=== PATIENT | female | born 1935 | race Caucasian/White ===

== ENCOUNTER 2016-07-03 06:50 | Inpatient (IN) | payer MEDICARE, BC ==
--- NOTE | 2016-06-05 08:06 | HP ---
CC: Dr. Carvajal; Dr. Barron; Preadmission Testing Unit at the hospital HISTORY AND PHYSICAL EXAM: DATE OF ADMISSION: 07/03/16 CHIEF COMPLAINT: Pain in her right knee that is increasing. HISTORY OF PRESENT ILLNESS: This 80-year-old white female has been diagnosed with osteoarthritis of the right knee, bone on bone. Dr. Rosanne Barron has scheduled the patient for right total knee repl acement at [facility] on 07/03/16. PAST MEDICAL HISTORY: The patient is under the care of Dr. Jr Carvajal and Dr. Alberto. She has a history of hypothyroidism, chronic myelogenic leukemia since 1999. She is on Gleevec and has been in remission. 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 PAST SURGICAL HISTORY: Includes: 1. T and A in childhood. 2. Left breast lumpectomy in 1995. 3. Right cataract extraction, 2005. 4. Left cataract extraction, November 2015. 5. 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 CURRENT MEDICATIONS: 1. Synthroid 75 mcg daily. 2. Gleevec 100 mg 4 times daily. 3. Bumex 1 mg with potassium 10 mEq 2 times per week. 4. Occasionally, she will use ibuprofen or Aleve. ALLERGIES: No known drug allergies. FAMILY HISTORY: Father had prostate CA. Maternal grandmother, colon CA. Paternal aunt, breast CA. Maternal aunt, ovarian cancer. SOCIAL HISTORY: The patient is . Lives with her who is a retired surgeon. 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 Alcohol is limited to 2 glasses of wine per week. She smoked tobacco for about 10 years, quit in 1966. REVIEW OF SYSTEMS: She does wear glasses. Has some intermittent plugging of her right ear. Arthri tis symptoms with discomfort in her hands and fingers. She sees Dr. Goldman, water pump assembler, ever y 6 months for skin evaluation. Otherwise, review of systems is negative to detailed questioning. She specifically denies any dyspnea, cough, chest pain, palpitations, or edema symptoms at the prese nt time. PHYSICAL EXAMINATION GENERAL: A 80-year-old white female who is alert, pleasant, and cooperative, looks younger than her stated age. VITAL SIGNS: Height approximately 5 feet 7 inches, weight stable at 144, blood pressure 142/68, pul se 84. HEENT: Eyes: Pupils round and react to light. Ears: Normal. Mouth: Tongue in midline. Teeth i n good repair. Pharynx is clear. NECK: Supple. Good range of motion. No adenopathy. Thyroid benign. BACK: Normal curvature. No tenderness noted of the spine or CVA areas. SKIN: Every [address] Goldman. LUNGS: Clear anteriorly and posteriorly. HEART: Rhythm is regular. No murmurs. Apical pulse 84 beats per minute. EKG shows normal sinus r hythm, LAD. No change compared to EKG done 11/21/15. ABDOMEN: Flat. Active bowel sounds. Abdomen is soft, nontender. No obvious masses or organomegal y. BREAST, PELVIC, RECTAL: Exams all up-to-date. The patient sees Dr. Amaro every year. IMPRESSION: The patient is likely stable and cleared for right total knee replacement on 07/03/[address] Rosanne Barron. RODGER BAR, MODEL MAKER [id number]/[facility] #: [id number]
--- NOTE | 2016-06-25 20:25 | HP ---
HISTORY AND PHYSICAL: DATE OF SURGERY: 07/03/16 PROCEDURE: Right total knee arthroplasty. CHIEF COMPLAINT: Right knee pain. HISTORY OF PRESENT ILLNESS: Ms. Anderson is a 80-year-old female with complaints of right knee pain secondary to advanced osteoarthritis. She has failed conservative management and has elected to proceed with a right total knee arthroplasty, which is scheduled for 07/03/[address] Barron. PAST MEDICAL HISTORY: Hypothyroidism, breast cancer, CML. PAST SURGICAL HISTORY: Tonsillectomy and lumpectomy. CURRENT MEDICATIONS: 1. Levothyroxine 75 mcg. 2. Gleevec 400 mg. 3. Ibuprofen. 4. Multivitamin. 5. Bumetanide 0.5 mg. 6. KCL 10 mEq. 7. Naproxen 250. 8. Systane lubricant eye drops. 9. Afrin nasal spray. 10. Diphenhydramine. ALLERGIES: No known drug allergies. FAMILY HISTORY: Colon cancer, stroke, and congestive heart failure. SOCIAL HISTORY: She is a 80-year-old female, she lives with her . She does not smoke or use drugs. She uses occasional alcohol. REVIEW OF SYSTEMS: A complete 14-point review of systems was reviewed with the patient and was positive for hypothyroidism. PHYSICAL EXAMINATION GENERAL: She is well developed, well nourished. She is in no acute distress. VITAL SIGNS: She stands 5 feet 7 inches tall and weighs 140 pounds. Blood pressure 118/80, her heart rate is 96. HEENT: Normocephalic, atraumatic. NECK: Supple. No palpable lymph nodes. PULMONARY: The lungs are clear to auscultation bilaterally. CARDIO: Regular rate and rhythm. ABDOMEN: Soft, nontender, nondistended. MUSCULOSKELETAL: Right lower extremity, the skin is intact. She has moderate joint effusion, tenderness over the medial and lateral joint line. Her lower extremity muscle group strengths are intact at 5/5. She has intact sensation. 2+ dorsalis pedis pulses. She walks with a slightly antalgic type gait, favoring her right leg. ASSESSMENT AND PLAN: Ms. Anderson is a 80-year-old female with complaints of right knee pain secondary to advanced osteoarthritis. She has failed conservative management and elected to proceed with a right total knee arthroplasty, which is scheduled for 07/03/[address] Barron discussed the risks and the benefits of the surgery at today's visit and all of her questions were answered. Oxycodone 5 mg, Coumadin, and Colace were sent to her pharmacy today for postoperative pain control and DVT prophylaxis. She will see Dr. Barron back 10 to 14 days after the surgery. LIAM PILLAI [id number]/[facility] #: [id number] ARNIE
[~2016-07-03 06:50] MED LIST: Buffered Lidocaine 1% SYRIN* 3 ML/SYR SYRINGE INTRADERM ONE; Dexamethasone IV* 4 MG/ML 1 ML (4 MG) IV SLOW PU ONE; Dexmedetomidine* 200 MCG/2 ML 2 ML VIAL ONE; Famotidine IV* 10 MG/ML 2 ML (20 mg) IV ONE
[2016-07-03] MEDS ORDERED: Dexamethasone IV* 4 MG/ML 1 ML (4 MG) ONE (06:52)
[2016-07-03] MEDS ORDERED: Famotidine IV* 10 MG/ML 2 ML (20 mg) ONE (06:52)
[2016-07-03] MEDS ORDERED: ceFAZolin 2 GM PREMIX(*) 2 GM/50 ML BAG IVPB ONE (06:52)
[2016-07-03] MEDS ORDERED: HYDROmorphone* 1 MG/ML 1 ML SYR ONE ×3 (06:57→09:28)
[2016-07-03] MEDS ORDERED: Midazolam* 1 MG/ML 2 ML VIAL (2 MG) ONE (06:58)
[2016-07-03] MEDS ORDERED: Morphine PF AMP (0.5MG/ML)* 5 MG/10 ML AMP ONE (06:58)
[2016-07-03] MEDS ORDERED: fentaNYL* 50 MCG/ML 2 ML VIAL (100 MCG VIAL) ONE ×2 (06:58→07:35)
[2016-07-03] MEDS ORDERED: Propofol* 10 MG/ML 20 ML BTL IV PUSH ONE (07:00)
[2016-07-03] MEDS ORDERED: DiMENhydriNATE IV* 50 MG/ML VIAL IV PUSH PRN ×2 (07:15→12:01)
[2016-07-03] MEDS ORDERED: fentaNYL* 50 MCG/ML 2 ML VIAL (100 MCG VIAL) IV PRN (07:15)
[2016-07-03] MEDS ORDERED: PROCHLORPERAZINE INJ 5 MG/ML 2 ML VIAL IV PRN ×2 (07:15→12:01)
[2016-07-03] MEDS ORDERED: Ondansetron INJ* 2 MG/ML VIAL IV PRN ×3 (07:15→12:01)
[2016-07-03] MEDS ORDERED: Meperidine SYRINGE* 50 MG/ML ONE (09:28)
[2016-07-03] MEDS ORDERED: VASOPRESSIN 20 UNITS/ML 1 ML VIAL ONE (10:30)
[2016-07-03] MEDS ORDERED: Acetaminophen TAB* 325 MG PO PRN (11:07)
[2016-07-03] MEDS ORDERED: Ondansetron TAB* 4 MG PO PRN (11:07)
[2016-07-03] MEDS ORDERED: oxyCODONE TAB* 5 MG TAB PO PRN (11:07)
[2016-07-03] MEDS ORDERED: diPHENhydraMINE IV* 50 MG/ML 1 ml VIAL (BENADRYL) IV PRN ×2 (11:07→12:01)
[2016-07-03] MEDS ORDERED: Magnesium Hydroxide LIQ* 30 ML UDC PO PRN (11:07)
[2016-07-03] MEDS ORDERED: LACTULOSE* 30 ML UDC PO PRN (11:07)
[2016-07-03] MEDS ORDERED: Bisacodyl SUPP* 10 MG SUPP PR PRN (11:07)
[2016-07-03] MEDS ORDERED: Morphine INJ* 2 MG/ML 1 ML SYRINGE IV PRN (11:07)
[2016-07-03] MEDS ORDERED: Polyethylene Glycol 3350* 17 GM PACKET PO PRN (11:07)
[2016-07-03] MEDS ORDERED: oxyCODONE/Acetamin 5/325 MG* TAB PO PRN ×3 (11:07→12:01)
[2016-07-03] MEDS ORDERED: BUMETANIDE 0.5 MG PO SCH (11:15)
[2016-07-03] MEDS ORDERED: Potassium Chlor TAB* 10 MEQ TAB.ER PO SCH (12:00)
[2016-07-03] MEDS ORDERED: Naloxone* 0.4 MG/ML 1 ML VIAL IV PRN (12:01)
[2016-07-03] MEDS ORDERED: Nalbuphine* 20 MG/ML 1 ML VIAL IV PRN (12:01)
--- NOTE | 2016-07-03 12:29 | RAD ---
HISTORY: Status post right arthroplasty COMPARISONS: June 22, 2016 VIEWS: 2, Frontal and lateral views of the right knee FINDINGS: BONE DENSITY: Normal. BONES: The patient is status post right knee arthroplasty. There is no hardware failure or osteolysis. JOINTS: The patient is status post right knee arthroplasty ALIGNMENT: There is no dislocation. SOFT TISSUES: There is post surgical change to the soft tissue OTHER FINDINGS: None. IMPRESSION: STATUS POST RIGHT KNEE ARTHROPLASTY
[2016-07-03] MEDS: ceFAZolin 1 GM in Dextrose (*) 1 GM/50 ML BAG IVPB SCH ×2 (14:08→19:44)
[2016-07-03] MEDS ORDERED: Warfarin TAB(*) 6 MG PO ONE (17:00)
[2016-07-03] MEDS: IMATINIB 400 MG PO SCH (18:29)
--- NOTE | 2016-07-03 20:35 | CONS ---
CONSULTATION REPORT: DATE OF CONSULT: 07/03/16 PRIMARY CARE PROVIDER: Dr. Carvajal. ATTENDING PHYSICIAN WHILE IN THE HOSPITAL: Inocencia Montes DO (report dictated by Franko Lema NP). REQUESTING PHYSICIAN FOR CONSULTATION: Dr. Barron. REASON FOR CONSULTATION: Evaluation and management of comorbid medical condition. HISTORY OF PRESENT ILLNESS: I refer you to Dr. Barron's H and P for further details. In short, Ms. Anderson is a 80-year-old female patient who has a history of hypothyroidism, breast cancer, and a history of CML along with melanoma. She comes in to the orthopedic services today for an elective right total knee replacement. She has been complaining of right knee pain for sometime secondary to advanced osteoarthritis. She failed conservative management and elected to proceed with a right total knee with Dr. Barron. She underwent the procedure today and we were asked to evaluate in consult. The patient was evaluated in the postoperative setting down in the short stay unit. The patient states that she does feel tired. She denies having any chest pain. Denies having any nausea. Denies any vomiting. She denies having any abdominal pain. Denies having any chest pain or shortness of breath. She states that she is not having any pain really. She says she does feel some pain along the incision line, but says that her sensation is intact to her lower extremities and says that her pain is well controlled, but because of her medical problems, hospitalist service was asked to evaluate in consult. PAST MEDICAL HISTORY: Significant for: 1. Hypothyroidism. 2. CML. 3. Breast cancer. 4. Osteoarthritis. SURGICAL HISTORY: 1. She has had a tonsillectomy and adenoidectomy. 2. Left breast lumpectomy. 3. Cataract extractions. 4. Melanoma excision. HOME MEDICATIONS: According to the list that she provided preoperatively include: 1. Potassium 10 mEq p.o., take as directed. 2. Multivitamin 1 tablet daily. 3. Synthroid 75 mcg daily. 4. Gleevec 400 mg p.o. daily at bedtime. 5. Ibuprofen 400 mg p.o. b.i.d. as needed. 6. Bumex 0.5 mg p.o. as directed. 7. Benadryl 25 mg, take as directed. 8. Afrin 1 spray both nares as needed. 9. Naproxen 220 mg p.o. daily as needed. ALLERGIES TO MEDICATIONS: Include no known drug allergies. FAMILY HISTORY: Her mother from suicide. Father had a history of prostate cancer. SOCIAL HISTORY: She is a former smoker. She rarely drinks alcohol. Surrogate decision maker is her . REVIEW OF SYSTEMS: There is no documented fever. She denied having any significant weight change. There was no double vision. No ear discharge. No rhinorrhea. No sore throat. No thyroid enlargement. Denies having any chest pain. There is no orthopnea. No nocturnal dyspnea. No abdominal pain. No nausea. No vomiting. No dysuria. No frequency. No seizure. No loss of consciousness. No pruritus and no skin ulcerations. Review of 14 systems completed, all others negative. PHYSICAL EXAM: Vital Signs: Blood pressure 91/50 with a pulse of 73, respirations 18, O2 sat 100%, and temperature 97.2. General: At this time, Ms. Anderson is a 80- year-old female patient. She appears to be well nourished, well developed. She does not appear to be in any acute distress. She is sitting in the postoperative bed. HEENT: Head is atraumatic, normocephalic. Eyes: EOMs are intact. Sclerae anicteric and not pale. Throat: Oral mucosa appears to be moist. No oropharyngeal erythema. Neck was supple. Heart: Sounds S1, S2. Regular rate and rhythm. No murmurs, rubs, or gallops. Lungs were clear to auscultation. No wheezes, rales, or rhonchi. Abdomen was soft, flat, nontender. Bowel sounds hypoactive. Extremities: Distal CSM checks were intact to lower extremities. She has 5/5 strength in the upper extremities. Neurologically, she is awake, alert, and oriented x3. Tongue midline. Equipment Cleaner And Tester are equal. No gross focal deficits. Skin is intact with the exception that she has an incision to the right knee which is covered with an Dylan dressing. Hemovac is intact. The dressing is clean, dry, and intact. DIAGNOSTIC STUDIES/LAB DATA: Preoperatively, WBC 4.6, RBC of 3.84, hemoglobin 12.2, hematocrit of 37, platelet count of 198. The coag INR of 0.82. Sodium 138, potassium 3.9, chloride of 103, bicarb 27, BUN 20, creatinine of 1.21, glucose of 91. Preop urine was negative. Preop chest x-ray showed no active disease. She had a preoperative EKG which showed a normal sinus rhythm. No ST elevations or T-wave inversions were noted. Old medical records were reviewed. ASSESSMENT AND PLAN: Ms. Anderson is a 80-year-old female patient coming in to the orthopedic services today for an elective total knee replacement. We were asked to evaluate in consult. Our recommendations at this point are: 1. Status post right total knee replacement: We will defer the management to Dr. Barron and her team. 2. Hypothyroidism: We will continue her Synthroid as prescribed. 3. History of breast cancer: Follow with her primary. 4. Chronic myelogenous leukemia. In terms of Gleevec, I do want to touch base with Dr. Alberto to make sure that this can be given in the postoperative setting safely which I believe it can be, but I would like to touch base with him. I have a call placed out to him and we will continue our hold per his recommendation. 5. DVT prophylaxis: Per the primary team. 6. Code status: Full code. 7. Fluids, electrolytes, and nutrition: She can have a regular diet. TIME SPENT: Time spent on the consult was 60 minutes; greater than half the time was spent [id number] with the patient obtaining my history and physical, other half the time spent going over the plan of care with the patient and implementing plan of care. I did discuss the plan of care with my attending, Dr. Montes; she is in agreement. FRANKO LEMA NP CC: Dr. Carvajal; Dr. Barron; Dr. Alberto* [id number]/[facility] #: [id number] [facility] HOSPITALAbdelrahman
[2016-07-03] MEDS: Docusate CAP* 100 MG PO SCH (22:06)
[2016-07-04] MEDS ORDERED: Ondansetron TAB* 4 MG PO PRN
[2016-07-04] MEDS ORDERED: oxyCODONE/Acetamin 5/325 MG* TAB PO PRN ×2
[2016-07-04] MEDS ORDERED: Ondansetron INJ* 2 MG/ML VIAL IV PRN
[2016-07-04] MEDS ORDERED: Morphine INJ* 2 MG/ML 1 ML SYRINGE IV PRN
[2016-07-04] MEDS ORDERED: diPHENhydraMINE IV* 50 MG/ML 1 ml VIAL (BENADRYL) IV PRN
[2016-07-04] MEDS: oxyCODONE TAB* 5 MG TAB PO PRN ×5 (00:20→23:52)
[2016-07-04] MEDS: ceFAZolin 1 GM in Dextrose (*) 1 GM/50 ML BAG IVPB SCH (03:56)
[2016-07-04 05:52] LABS: Hematocrit 25 % (35-47); Hemoglobin 8.2 g/dl (12.0-16.0); Mean Corpuscular HGB Conc 33 g/dl (31-36); Mean Corpuscular Hemoglobin 32 pg (27-31); Mean Corpuscular Volume 96 fL (80-97); Mean Platelet Volume 8 um3 (7.4-10.4); Red Blood Count 2.61 10^6/ul (4.0-5.4); Red Cell Distribution Width 14 % (10.5-15); White Blood Count 9.6 10^3/ul (3.5-10.8)
[2016-07-04 06:04] LABS: BUN/Creatinine Ratio 16.9 (8-20); Calcium 8.4 mg/dL (8.6-10.3); EGFR African American 78.9 (>60); EGFR Non-African American 61.3 (>60); Potassium 4.2 mmol/L (3.5-5.0)
[2016-07-04] MEDS: Levothyroxine TAB* 75 MCG TAB PO SCH (06:22)
--- NOTE | 2016-07-04 06:31 | OP ---
DATE OF OPERATION: 07/03/16 - ROOM #347 DATE OF : 39 SURGEON: Rosanne Barron MD INSIDE OUTSIDE SALES REPRESENTATIVE: LIAM Valencia ANESTHESIOLOGIST: Oswaldo Carpenter MD ANESTHESIA: Spinal with adductor nerve block. PRE-OP DIAGNOSIS: Severe end-stage degenerative osteoarthritis of the right knee joint with valgus deformity. POST-OP DIAGNOSIS: Severe end-stage degenerative osteoarthritis of the right knee joint with valgus deformity. OPERATIVE PROCEDURE: Right total knee arthroplasty. TOURNIQUET TIME: 62 minutes. COMPLICATIONS: None. ESTIMATED BLOOD LOSS: 200 cc. SPECIMEN: Bone and cartilage from the right knee joint, sent to pathology. HARDWARE USED: This is Carpenter [employer] Nephew cemented total knee hardware. Two packages of Simplex bone cement. For the femur, a size 5 right posterior stabilized LEGION narrow femoral component. For the tibia, a size 3 right tibial base plate. The insert is a 9 mm posterior stabilized articular insert size 3-4. For the patella, a 32 mm 3-peg all-poly patella with 7.5 thickener. BRIEF HISTORY/INDICATIONS: Ms. Anderson is a 80-year-old female with years of increasingly severe right knee pain and valgus deformity. She failed conservative treatment with antiinflammatories, pain medications, intraarticular injections, and physical therapy. She elected to undergo right total knee arthroplasty due to continued pain, decreased quality of life, and increasing valgus deformity. Informed consent was obtained from the patient. She understood the risks of the procedure included but were not limited to bleeding, infection, damage to nearby structures, continued pain and need for further surgery, intraoperative fracture, nerve palsy, hardware failure or loosening, stroke, heart attack, blood clot, and . She wished to proceed. INTRAOPERATIVE FINDINGS: Intraoperatively, the patient was noted to have 10 degree valgus deformity. This was corrected to anatomic 3 to 5 degrees by the end of the surgery. She had severe end-stage arthritis of the lateral and patellofemoral compartments with complete loss of cartilage. DESCRIPTION OF PROCEDURE: Ms. Anderson was identified in the preanesthesia unit. Her right lower extremity was marked as the correct operative side. Informed consent was signed and placed in the chart. The patient was taken to the operating room. Adductor nerve block and spinal anesthesia were administered without complications. A Reyes catheter was placed. A thigh high tourniquet was placed on the right thigh. Right lower extremity was prepped and draped in the usual sterile fashion. Preop time-out was made to correctly identify the patient's side and site. Appropriate perioperative antibiotics were given within 1 hour of incision. A 12-cm midline incision was made with the 10 blade and carried down to the extensor mechanism. A new 10 blade was used to make a standard medial peripatellar arthrotomy. Patella was subluxed laterally. Electrocautery was used to subperiosteally elevate the soft tissue off the superomedial tibia to the mid sagittal plane. This elevation was done in a conservative fashion due to the patient's valgus deformity. The knee was flexed up. The anterior horn of the lateral meniscus and ACL were released. A drill was used to enter the distal femur. Intramedullary distal femoral cutting guide with 3-degree setting was placed and pinned on the distal femur. Some mild lateral femoral condylar hyperplasia was noted and adjusted for. A 9 mm of distal femur was carefully removed with an oscillating saw. Next, the external rotation guide was placed on the distal femur and the distal femur was sized to a size 5. A size 5 multi-cutting jig was pinned on the distal femur. Oscillating saw was used to make the appropriate 4 chamfer cuts. Any bony fragments were carefully removed. The PCL was completely released at this point. Tibia was subluxed anteriorly. Extramedullary tibial cutting guide was pinned on the proximal tibia. Oscillating saw was used to make the appropriate proximal tibial cut. This cut was made perpendicular to the mechanical access of the tibia. The bone was carefully removed. The knee was brought out into full extension. The spacer block had excellent fit. Some slight tightness on the lateral side was addressed with minimal thigh crusting. Medial and lateral ligaments were well balanced. Flexion and extension gaps were well balanced. A trial right size 5 narrow femoral component was impacted onto the distal femur and had good fit. The box for the posterior stabilized implants was prepared using a reamer and a box cut osteotome. Trial size 3 tibial tray and 9 mm insert trial were placed. The knee was taken through a range of motion and noted to have a full extension to a 130 degrees of flexion with good patellofemoral tracking. The patella was everted. A 7 mm of patellar bone and cartilage was carefully removed. A 14 mm of patellar bone was left remaining. The patella was sized to a size 32. Three peg holes were drilled to the size 32 guide. Because of the original thickness of the patella, a thin 7.5 trial patella was chosen. It was placed and the knee was taken through a range of motion. The knee had good patellofemoral tracking. All trials were carefully removed. The tibia was subluxed anteriorly and sized to a size 3. Proximal tibia was prepared using a size 3 keel punch. All bony cut surfaces were copiously irrigated with sterile saline and dried. Final implants were cemented into place starting with the tibia followed by the femur and last the patella. A 9 mm insert trial was placed while the knee was brought out into full extension. Tourniquet was turned down at 62 minutes. The cement was allowed to fully cure. The insert trial was removed. Electrocautery was used to obtain meticulous hemostasis. Any excess cement was carefully removed. Final inserts chosen was a 9 mm posterior stabilized articular insert. This was locked into position on the tibial tray without difficulty. Stability of the insert was checked and rechecked and noted to be stable. Final range of motion with full extension to a 130 degrees of flexion with good patellofemoral tracking. The knee was copiously irrigated with sterile saline. The extensor mechanism was closed using interrupted #1 Vicryl over a medium Hemovac drain. The rest of the incision was closed in a layered fashion using 0 and 2-0 Vicryls. The skin was closed using running 3-0 nylon suture. Sterile Xeroform, 4x4s, and Webril were used t o cover the incision. Dylan wrap and cold packs were placed over this. The patient's anesthesia was reversed without difficulty. She was taken to the PACU in stable condition. Intending weightbearing will be weightbearing as tolerated. Intended DVT prophylaxis will be Coumadin with a Lovenox bridge. [id number]/[facility] #: [id number] ARNIE
[2016-07-04] MEDS ORDERED: Enoxaparin(*) 30 MG/0.3 ML SYR SUBCUT SCH (08:00)
[2016-07-04] MEDS: Docusate CAP* 100 MG PO SCH ×2 (08:18→23:52)
--- NOTE | 2016-07-04 09:59 | PN ---
Progress Note - Progress Note SOAP: Subjective: []Patient seen OOB in chair. Doing well. Pain well managed. Denies SOB, CP or dizziness. Objective: [] Vital Signs Temp 97.7 F 07/04/16 07:42 Pulse 94 07/04/16 07:42 Resp 16 07/04/16 08:20 BP 144/53 07/04/16 07:42 Pulse Ox 98 07/04/16 07:42 Intake & Output 07/03/16 07/04/16 07/04/16 18:59 06:59 18:59 Intake Total 2500 1145 360 Output Total 600 1775 Balance 1900 -630 360 Weight 143 lb 12.8 oz Intake: IV Fluids 1700 1095 ABX - CEFAZOLIN 115 LR 1700 980 IVPB 0 50 LR 0 50 Oral 800 0 360 Output: Reyes 400 1775 Estimated Blood Loss 200 Other: # Bowel Movements 0 Laboratory Results - last 24 hr 07/04/16 07/04/16 07/04/16 05:37 05:37 05:37 WBC 9.6 RBC 2.61 L Hgb 8.2 L Hct 25 L MCV 96 MCH 32 H MCHC 33 RDW 14 Plt Count 154 MPV 8 Neut % (Auto) 88.7 H Lymph % (Auto) 5.3 L Taney % (Auto) 5.9 Eos % (Auto) 0 Baso % (Auto) 0.1 Absolute Neuts (auto) 8.5 H Absolute Lymphs (auto) 0.5 L Absolute Monos (auto) 0.6 Absolute Eos (auto) 0 Absolute Basos (auto) 0 Absolute Nucleated RBC 0 Nucleated RBC % 0 INR (Anticoag Therapy) 0.99 Sodium 137 Potassium 4.2 Chloride 106 Carbon Dioxide 25 Anion Gap 6 BUN 15 Creatinine 0.89 Est GFR ( Amer) 78.9 Est GFR (Non-Af Amer) 61.3 BUN/Creatinine Ratio 16.9 Glucose 134 H Calcium 8.4 L Right knee GENO dry and intact Hemovac drain discontinued without difficulty, tip intact Calf non tender and soft +DF/PF right ankle Assessment: []s/p right total knee arhroplasty POD #1 Plan: []PT/OT WBAT RLE Coumadin with Lovenox bridge- 8mg today Monitor H+H, currently asymptomatic
--- NOTE | 2016-07-04 14:10 | PN ---
Subjective Date of Service: 07/04/16 Interval History: Patient seen and examined at bedside. Pt states that she is feeling well. Denies fever, chills, shortness of breath, chest discomfort, N/V/D. Pt has been up and ambulating with physical therapy. Pt states that she has right knee pain , but it is controlled. Family History: Unchanged from Admission Social History: Unchanged from Admission Past Medical History: Unchanged from Admission Objective Active Medications: Acetaminophen (Tylenol Tab*) 650 mg PO Q4H PRN Reason: PAIN OR TEMPERATURE Bisacodyl (Dulcolax Supp*) 10 mg AL DAILY PRN Reason: constipation Diphenhydramine HCl (Benadryl Iv*) 12.5 mg IV Q6H PRN Reason: PRURITIS Docusate Sodium (Colace Cap*) 100 mg PO BID RICK Enoxaparin Sodium (Lovenox(*)) 30 mg SUBCUT Q24H RICK Lactated Ringer's (Lactated Ringers 1000 Ml Bag*) 1,000 mls @ 100 mls/hr IV PER RATE RICK Imatinib Mesylate (Gleevec (Nf)) 400 mg PO QPM RICK Lactulose (Lactulose*) 30 ml PO Q6H PRN Reason: constipation Levothyroxine Sodium (Synthroid Tab*) 75 mcg PO 0600 RICK Magnesium Hydroxide (Milk Of Magnesia Liq*) 30 ml PO Q6H PRN Reason: constipation Morphine Sulfate (Morphine Inj (Syringe)*) 2 mg IV Q2H PRN Reason: PAIN Ondansetron HCl (Zofran Inj*) 4 mg IV Q6H PRN Reason: nausea Ondansetron HCl (Zofran Tab*) 4 mg PO Q6H PRN Reason: NAUSEA Oxycodone HCl (Roxycodone Tab*) 10 mg PO Q4H PRN Reason: SEVERE PAIN Oxycodone/Acetaminophen (Percocet 5/325 Tab*) 1 tab PO Q3H PRN Reason: PAIN - MODERATE Oxycodone/Acetaminophen (Percocet 5/325 Tab*) 2 tab PO Q3H PRN Reason: PAIN - MODERATE Pharmacy Profile Note (Coumadin Daily Reminder*) 0 note FOLLOW UP 1700 RICK Polyethylene Glycol/Electrolytes (Miralax*) 17 gm PO DAILY PRN Reason: Constipation Warfarin Sodium (Coumadin Tab(*)) 8 mg PO ONCE@1700 ONE Stop: 04/26/17 17:01 Vital Signs 07/03/16 07/03/16 07/03/16 14:19 15:07 16:00 Temperature 97.2 F 97.3 F Pulse Rate 73 81 Respiratory 10 14 Rate Blood Pressure 91/50 110/57 (mmHg) O2 Sat by Pulse 100 100 100 Oximetry 07/03/16 07/03/16 07/03/16 17:12 19:15 19:34 Temperature 97.6 F 97.7 F Pulse Rate 83 85 Respiratory 14 14 20 Rate Blood Pressure 134/51 147/61 (mmHg) O2 Sat by Pulse 100 100 Oximetry 07/03/16 07/03/16 07/03/16 21:30 22:07 23:07 Temperature Pulse Rate Respiratory 20 18 Rate Blood Pressure (mmHg) O2 Sat by Pulse 98 Oximetry 07/03/16 07/04/16 07/04/16 23:50 00:20 02:20 Temperature 97.9 F Pulse Rate 84 Respiratory 16 16 18 Rate Blood Pressure 126/61 (mmHg) O2 Sat by Pulse 96 Oximetry 07/04/16 07/04/16 07/04/16 04:14 06:22 07:42 Temperature 98.2 F 97.7 F Pulse Rate 79 94 Respiratory 15 18 16 Rate Blood Pressure 110/51 144/53 (mmHg) O2 Sat by Pulse 99 98 Oximetry 07/04/16 07/04/16 07/04/16 08:00 08:20 11:45 Temperature 97.9 F Pulse Rate 88 Respiratory 16 16 16 Rate Blood Pressure 105/32 (mmHg) O2 Sat by Pulse 92 Oximetry 07/04/16 07/04/16 12:57 13:05 Temperature Pulse Rate 81 Respiratory 18 Rate Blood Pressure 134/53 (mmHg) O2 Sat by Pulse Oximetry Oxygen Devices in Use Now: None Appearance: NAD, sitting up in bed Eyes: No Scleral Icterus, PERRLA Ears/Nose/Mouth/Throat: Mucous Membranes Moist Respiratory: Symmetrical Chest Expansion and Respiratory Effort, Clear to Auscultation Cardiovascular: NL Sounds; No Murmurs; No JVD, RRR, - - Occasional irregular beats Abdominal: NL Sounds; No Tenderness; No Distention Extremities: No Edema Skin: - - Dressing to right knee clean, dry and intact Neurological: Alert and Oriented x 3, NL Muscle Strength and Tone Lines/Tubes/Other Access: Clean, Dry and Intact Peripheral IV - site benign Nutrition: Taking PO's Result Diagrams: 07/04/16 05:37 07/04/16 05:37 Assess/Plan/Problems-Billing Assessment: Ms. Anderson is a 80 yo female with PMH significant for hypothyroidism, CML, breast CA and osteoarthritis who presented to the hospital for an elective right total knee arthroplasty with Dr. Barron on 07/03/16. - Patient Problems (1) Status post total right knee replacement Code(s): Z96.651 - PRESENCE OF RIGHT ARTIFICIAL KNEE JOINT SNOMED Code(s): 2372468382700 Comment: - Management per Ortho - PT/OT - Trend HH - Pain management and bowel regime (2) Hypothyroidism Code(s): E03.9 - HYPOTHYROIDISM, UNSPECIFIED SNOMED Code(s): 91873091 Comment: - Continue Levothyroxine (3) History of breast cancer Code(s): Z85.3 - PERSONAL HISTORY OF MALIGNANT NEOPLASM OF BREAST SNOMED Code( s): 169022908 Comment: - No concerns at this time - Follow with PCP (4) CML (chronic myelocytic leukemia) Code(s): C92.10 - CHRONIC MYELOID LEUK, BCR/ABL-POSITIVE, NOT ACHIEVE REMIS SNOMED Code(s): 98262758 Comment: - Ok to continue Gleevac per Dr. Alberto - Continue to monitor CBC (5) DVT prophylaxis Code(s): VOG3413 - SNOMED Code(s): 683752293 Comment: - Lovenox bridge to Warfarin per Ortho (6) Full code status Code(s): Z78.9 - OTHER SPECIFIED HEALTH STATUS SNOMED Code(s): 422733596 Status and Disposition: Inpatient. Disposition per Orthopedics
[2016-07-04] MEDS ORDERED: Warfarin TAB(*) 4 MG PO ONE (17:00)
[2016-07-04] MEDS: traMADol TAB* 50 MG PO PRN (17:58)
[2016-07-04] MEDS: IMATINIB 400 MG PO SCH (18:25)
[2016-07-05] MEDS: oxyCODONE TAB* 5 MG TAB PO PRN ×5 (03:57→22:44)
[2016-07-05 05:39] LABS: Hematocrit 23 % (35-47); Hemoglobin 7.6 g/dl (12.0-16.0); Mean Corpuscular HGB Conc 33 g/dl (31-36); Mean Corpuscular Hemoglobin 32 pg (27-31); Mean Corpuscular Volume 95 fL (80-97); Mean Platelet Volume 8 um3 (7.4-10.4); Red Blood Count 2.42 10^6/ul (4.0-5.4); Red Cell Distribution Width 14 % (10.5-15); White Blood Count 6.5 10^3/ul (3.5-10.8)
[2016-07-05] MEDS: traMADol TAB* 50 MG PO PRN (06:03)
[2016-07-05] MEDS: Levothyroxine TAB* 75 MCG TAB PO SCH (06:03)
[2016-07-05] MEDS: Docusate CAP* 100 MG PO SCH ×2 (08:41→19:39)
--- NOTE | 2016-07-05 12:00 | PN ---
Progress Note - Progress Note SOAP: Subjective: []Patient seen at bedside. Doing well overall despite low h+h. Does not yet feel she requires a transfusion. Objective: [] Vital Signs Temp 98.4 F 07/05/16 07:19 Pulse 89 07/05/16 07:19 Resp 16 07/05/16 10:40 BP 134/56 07/05/16 07:19 Pulse Ox 95 07/05/16 07:19 Intake & Output 07/04/16 07/05/16 07/05/16 18:59 06:59 18:59 Intake Total 1593 1060 Output Total 400 450 150 Balance 1193 610 -150 Intake: IV Fluids 1033 ABX - CEFAZOLIN 53 LR 980 Oral 560 1060 Output: Urine 450 150 Reyes 400 Other: Estimated Void Medium # Bowel Movements 0 # Voids 1 Laboratory Results - last 24 hr 07/05/16 07/05/16 05:30 05:30 WBC 6.5 RBC 2.42 L Hgb 7.6 L Hct 23 L MCV 95 MCH 32 H MCHC 33 RDW 14 Plt Count 145 L MPV 8 Neut % (Auto) 77.5 Lymph % (Auto) 11.4 L [place] % (Auto) 10.5 H Eos % (Auto) 0.5 Baso % (Auto) 0.1 Absolute Neuts (auto) 5.0 Absolute Lymphs (auto) 0.7 L Absolute Monos (auto) 0.7 Absolute Eos (auto) 0 Absolute Basos (auto) 0 Absolute Nucleated RBC 0 Nucleated RBC % 0 INR (Anticoag Therapy) 1.40 H Right knee dressings changed this am by Dr. Barron, reported benign calf NT and soft +DF/PF right ankle Assessment: []s/p Right total knee arthroplasty POD #2 Plan: []PT/OT WBAT RLE Coumadin 6 mg today Tramadol for pain Transfusion if patient becomes symptomatic probable discharge home 07/06
[2016-07-05] MEDS ORDERED: Warfarin TAB(*) 6 MG PO ONE (17:00)
--- NOTE | 2016-07-05 18:19 | PN ---
Subjective Date of Service: 07/05/16 Interval History: Patient seen and examined at bedside. Pt states that she feels well today. Denies fever, chills, shortness of breath, chest discomfort, lightheadedness or dizziness, N/V/D. Pt states that she is urinating without difficulty, but has not moved her bowels yet. Family History: Unchanged from Admission Social History: Unchanged from Admission Past Medical History: Unchanged from Admission Objective Active Medications: Acetaminophen (Tylenol Tab*) 650 mg PO Q4H PRN Reason: PAIN OR TEMPERATURE Bisacodyl (Dulcolax Supp*) 10 mg MD DAILY PRN Reason: constipation Diphenhydramine HCl (Benadryl Iv*) 12.5 mg IV Q6H PRN Reason: PRURITIS Docusate Sodium (Colace Cap*) 100 mg PO BID RICK Lactated Ringer's (Lactated Ringers 1000 Ml Bag*) 1,000 mls @ 100 mls/hr IV PER RATE RICK Imatinib Mesylate (Gleevec (Nf)) 400 mg PO QPM RICK Lactulose (Lactulose*) 30 ml PO Q6H PRN Reason: constipation Levothyroxine Sodium (Synthroid Tab*) 75 mcg PO 0600 RICK Magnesium Hydroxide (Milk Of Magnesia Liq*) 30 ml PO Q6H PRN Reason: constipation Morphine Sulfate (Morphine Inj (Syringe)*) 2 mg IV Q2H PRN Reason: PAIN Ondansetron HCl (Zofran Inj*) 4 mg IV Q6H PRN Reason: nausea Ondansetron HCl (Zofran Tab*) 4 mg PO Q6H PRN Reason: NAUSEA Oxycodone HCl (Roxycodone Tab*) 10 mg PO Q4H PRN Reason: SEVERE PAIN Oxycodone/Acetaminophen (Percocet 5/325 Tab*) 1 tab PO Q3H PRN Reason: PAIN - MODERATE Oxycodone/Acetaminophen (Percocet 5/325 Tab*) 2 tab PO Q3H PRN Reason: PAIN - MODERATE Pharmacy Profile Note (Coumadin Daily Reminder*) 0 note FOLLOW UP 1700 RICK Polyethylene Glycol/Electrolytes (Miralax*) 17 gm PO DAILY PRN Reason: Constipation Tramadol HCl (Ultram*) 50 mg PO Q6H PRN Reason: mild-moderate pain Vital Signs 07/04/16 07/04/16 07/04/16 20:38 21:47 23:33 Temperature 98.3 F 98.6 F Pulse Rate 80 93 Respiratory 16 16 18 Rate Blood Pressure 121/46 109/47 (mmHg) O2 Sat by Pulse 100 96 Oximetry 07/04/16 07/05/16 07/05/16 23:52 01:52 03:21 Temperature 98.6 F Pulse Rate 84 Respiratory 16 16 16 Rate Blood Pressure 111/40 (mmHg) O2 Sat by Pulse 94 Oximetry 07/05/16 07/05/16 07/05/16 07:19 08:00 08:03 Temperature 98.4 F Pulse Rate 89 Respiratory 16 16 18 Rate Blood Pressure 134/56 (mmHg) O2 Sat by Pulse 95 Oximetry 07/05/16 07/05/16 07/05/16 08:40 10:40 12:03 Temperature 97.8 F Pulse Rate 82 Respiratory 18 16 14 Rate Blood Pressure 128/47 (mmHg) O2 Sat by Pulse 97 Oximetry 07/05/16 07/05/16 07/05/16 13:16 15:16 15:22 Temperature 97.1 F Pulse Rate 80 Respiratory 18 18 16 Rate Blood Pressure 143/60 (mmHg) O2 Sat by Pulse 97 Oximetry Oxygen Devices in Use Now: None Appearance: NAD, sitting up in a chair Eyes: No Scleral Icterus, PERRLA Ears/Nose/Mouth/Throat: Mucous Membranes Moist Respiratory: Symmetrical Chest Expansion and Respiratory Effort, Clear to Auscultation Cardiovascular: NL Sounds; No Murmurs; No JVD, RRR Abdominal: NL Sounds; No Tenderness; No Distention Extremities: No Edema Skin: No Rash or Ulcers, - - Dressing to right knee clean, dry and intact Neurological: Alert and Oriented x 3, NL Muscle Strength and Tone Lines/Tubes/Other Access: Clean, Dry and Intact Peripheral IV - site benign Nutrition: Taking PO's Result Diagrams: 07/05/16 05:30 07/04/16 05:37 Assess/Plan/Problems-Billing Assessment: Ms. Anderson is a 80 yo female with PMH significant for hypothyroidism, CML, breast CA and osteoarthritis who presented to the hospital for an elective right total knee arthroplasty with Dr. Barron on 07/03/16. - Patient Problems (1) Status post total right knee replacement Code(s): Z96.651 - PRESENCE OF RIGHT ARTIFICIAL KNEE JOINT SNOMED Code(s): 4416026294583 Comment: - Management per Ortho - PT/OT - Trend HH, HH 7.08/31 - Asymptomatic - Pain management and bowel regime (2) Hypothyroidism Code(s): E03.9 - HYPOTHYROIDISM, UNSPECIFIED SNOMED Code(s): 18662785 Comment: - Continue Levothyroxine (3) History of breast cancer Code(s): Z85.3 - PERSONAL HISTORY OF MALIGNANT NEOPLASM OF BREAST SNOMED Code( s): 101705323 Comment: - No concerns at this time - Follow with PCP (4) CML (chronic myelocytic leukemia) Code(s): C92.10 - CHRONIC MYELOID LEUK, BCR/ABL-POSITIVE, NOT ACHIEVE REMIS SNOMED Code(s): 73176825 Comment: - Ok to continue Gleevac per Dr. Alberto - Continue to monitor CBC (5) DVT prophylaxis Code(s): DSB4091 - SNOMED Code(s): 786823406 Comment: - Lovenox bridge to Warfarin per Ortho (6) Full code status Code(s): Z78.9 - OTHER SPECIFIED HEALTH STATUS SNOMED Code(s): 814925184 Status and Disposition: Inpatient. Disposition per Orthopedics
[2016-07-05] MEDS: IMATINIB 400 MG PO SCH (18:34)
[2016-07-06] MEDS: traMADol TAB* 50 MG PO PRN ×2 (05:57→13:21)
[2016-07-06] MEDS: Levothyroxine TAB* 75 MCG TAB PO SCH (05:57)
[2016-07-06 07:00] LABS: Hematocrit 26 % (35-47); Hemoglobin 8.6 g/dl (12.0-16.0); Mean Corpuscular HGB Conc 33 g/dl (31-36); Mean Corpuscular Hemoglobin 32 pg (27-31); Mean Corpuscular Volume 95 fL (80-97); Mean Platelet Volume 8 um3 (7.4-10.4); Red Blood Count 2.71 10^6/ul (4.0-5.4); Red Cell Distribution Width 14 % (10.5-15); White Blood Count 7.2 10^3/ul (3.5-10.8)
[2016-07-06] MEDS: Docusate CAP* 100 MG PO SCH (08:13)
--- NOTE | 2016-07-06 08:55 | PN ---
Progress Note - Progress Note SOAP: Subjective: Pt is doing well. He pain is well controlled. She has not had a BM but is passing flatus. She denies CP, SOB, lightheadedness, calf pain or f/c. Objective: PE: 80 y/o F in NAD, sitting comfortable RLE: dressing changes, incision c/d/i with no sign of infection, calf soft nontender, +DF/PF of ankle, +2 DP pulse, sensation intact Vital Signs Temp Pulse Resp BP Pulse Ox 98.0 F 85 18 138/56 100 07/06/16 08:20 07/06/16 08:20 07/06/16 08:20 07/06/16 08:20 07/06/16 08:20 Laboratory Results - last 24 hr 07/06/16 07/06/16 06:12 06:12 WBC 7.2 RBC 2.71 L Hgb 8.6 L Hct 26 L MCV 95 MCH 32 H MCHC 33 RDW 14 Plt Count 172 MPV 8 Neut % (Auto) 73.2 Lymph % (Auto) 12.0 L [place] % (Auto) 12.1 H Eos % (Auto) 2.4 Baso % (Auto) 0.3 Absolute Neuts (auto) 5.3 Absolute Lymphs (auto) 0.9 L Absolute Monos (auto) 0.9 H Absolute Eos (auto) 0.2 Absolute Basos (auto) 0 Absolute Nucleated RBC 0 Nucleated RBC % 0 INR (Anticoag Therapy) 2.20 H Assessment: POD 3 s/p right TKA Plan: DC to home today. H&H improving pt is asymptomatic cont coumadin, percocet and colace WBAT- cont PT OT F/U 10-14 days post op with Dr. Barron
[2016-07-06] MEDS: oxyCODONE TAB* 5 MG TAB PO PRN (08:57)
[2016-07-06 12:11] VITALS: BP 123/57
--- NOTE | 2016-07-07 03:33 | DS ---
DISCHARGE SUMMARY: DATE OF ADMISSION: 07/03/16 DATE OF DISCHARGE: 07/06/16 ADMITTING DIAGNOSIS: Status post right total knee arthroplasty for severe right knee osteoarthritis . SECONDARY DIAGNOSES: 1. Hypothyroidism. 2. Breast cancer. 3. Chronic myelogenous leukemia. CONSULTATIONS: Hospitalist, occupational therapy, and physical therapy. HISTORY OF PRESENT ILLNESS: Ms. Anderson is a 80-year-old female with complaints of ongoing right kne e pain due to severe advanced osteoarthritis. She failed conservative measures and has, therefore, elected to proceed with a right total knee arthroplasty with Dr. Barron done on 07/03/16. HOSPITAL COURSE: Ms. Anderson was admitted to [facility] on 07/03/16. She underwent a righ t total knee arthroplasty with Dr. Barron. Postoperatively, she recovered on the short stay surgical unit. On postop day 1, the Reyes was removed and she was able to urinate on her own. She was adva nced to a regular diet without difficulty and her pain was controlled with oral Percocet. She was r estarted on home medications. Her labs and vitals remained stable. Her H and H was a little low; h owever, she was asymptomatic. She was able to weight bear as tolerated on the right lower extremity . She advanced properly with physical therapy and occupational therapy. Her DVT prophylaxis was ma naged with Lovenox and Coumadin until she reached a therapeutic INR. Her INR on 07/04/16 was 0.99, on 07/05/16 was 1.4, on 07/06/16 was 2.20. She received 8 mg of Coumadin on 07/04/16 and 6 mg of Co umadin on 07/05/16. By postop day 3, she was orthopedically and medically stable for discharge to [facility] with [facility] services. PHYSICAL EXAMINATION: General: A 80-year-old well-developed, well-nourished female, in no acute di stress. Alert and oriented x3. Vital Signs: Temp 96.8, pulse 78, respiratory rate 18, O2 sat 99%, blood pressure 122/57. Right lower extremity dressing was changed. The incision was clean, dry, a nd intact with no signs of infection. Calves are soft and nontender. Positive dorsiflexion and andres ntar flexion of the ankle. Posterior dorsalis pedis pulse. Sensation intact. DISCHARGE CONDITION: Stable. DISCHARGE MEDICATIONS: Home medications continued on discharge to include: 1. Calcium chloride tablet 10 mEq by mouth, see instructions. 2. Levothyroxine 75 mcg by mouth every morning. 3. Gleevec 400 mg by mouth every night. 4. Bumex 0.5 mg by mouth, see instructions. 5. Multivitamin 1 cap by mouth daily. 6. Ibuprofen 400 mg by mouth twice a day as needed. The patient understands that she should not ta ke this with Coumadin. 7. Systane eye drops 1 both eyes daily. 8. Afrin nasal spray 1 in both nares as needed. 9. Naproxen sodium 220 mg by mouth as needed. The patient understands that she should not take thi s with Coumadin. 10. Diphenhydramine HCL 25 mg by mouth as needed for allergies, see instructions. New medications on discharge to include: 1. Docusate 100 mg by mouth twice a day. 2. Warfarin 2 mg tab, take as directed. 3. Tramadol 50 mg by mouth every 6 hours as needed for pain. 4. Oxycodone 5 mg every 4 to 6 hours as needed for pain. Percocet was discontinued because the patient is unable to take Tylenol. DISCHARGE INSTRUCTIONS: The patient may shower postop day 4. Light dressing or an Dylan wrap can be applied to the knee. She should not submerge the wound in water such as bath hot tubs or pools. Sh e should keep the sutures intact until the postop visit with Dr. Barron. She is weightbearing as alecia erated on the right lower extremity. She should continue physical therapy. Oxycodone and tramadol will be used for pain. Colace will be used for constipation. She will be on Coumadin with INR draw s on Saturday and . On 07/06/16, she should hold her dose. On 07/07/16, she should take 4 mg and on 07/08/16, she should take 4 mg with a redraw on Saturday. She will follow up with Dr. Anderson agosto 2 weeks. She was told not to take naproxen or ibuprofen while on the Coumadin. She understands t o call the orthopedic office or go to the ER with increased redness, increased pain, calf pain, feve r greater than 101.5, shortness of breath, or chest pain. She will follow up with Dr. Barron in 10 t o 14 days. LIAM SAXENA [id number]/[facility] #: [id number]
== END 2016-07-06 13:50 | disposition home health service (06) | DRG 470 ==
LOC: AA 06:50 → SSU 11:07
PROVIDERS: ADMIT Orthopaedic Surgery Adult Reconstructive Orthopaedic Surgery; ATTEND Orthopaedic Surgery Adult Reconstructive Orthopaedic Surgery
PROC: 0SRC0J9 Replacement of Right Knee Joint with Synthetic Substitute, Cemented, Open Approach (ICD-10-PCS; principal; 2016-07-03 08:00)
DX: M17.11 Unilateral primary osteoarthritis, right knee (principal); D64.9 Anemia, unspecified; C92.11 Chronic myeloid leukemia, BCR/ABL-positive, in remission; E03.9 Hypothyroidism, unspecified; M19.042 Primary osteoarthritis, left hand; M19.041 Primary osteoarthritis, right hand; M21.061 Valgus deformity, not elsewhere classified, right knee; Z82.49 Family history of ischemic heart disease and other diseases of the circulatory system; Z80.0 Family history of malignant neoplasm of digestive organs; Z82.3 Family history of stroke; Z85.3 Personal history of malignant neoplasm of breast; Z85.820 Personal history of malignant melanoma of skin; Z98.42 Cataract extraction status, left eye; Z98.41 Cataract extraction status, right eye; Z80.42 Family history of malignant neoplasm of prostate; Z80.3 Family history of malignant neoplasm of breast; Z80.41 Family history of malignant neoplasm of ovary; Z81.8 Family history of other mental and behavioral disorders; Z84.89 Family history of other specified conditions; Z79.01 Long term (current) use of anticoagulants
CPT/HCPCS: 36415; 80048; 85025; 85610; 94760; 94762; A9270-GY; C1776; J0690; J1100; J1170; J1200; J1650; J2250; J2405; J2704; J3010

== ENCOUNTER 2016-08-21 06:06 | Day surgery (SDC) | payer MEDICARE, BC ==
[~2016-08-21 06:06] MED LIST changes: +Buffered Lidocaine 0.9% SYRIN* 5 ML/SYR SYRINGE INTRADERM ONE; -Buffered Lidocaine 1% SYRIN* 3 ML/SYR SYRINGE INTRADERM ONE; -Dexamethasone IV* 4 MG/ML 1 ML (4 MG) IV SLOW PU ONE; -Dexmedetomidine* 200 MCG/2 ML 2 ML VIAL ONE; -Famotidine IV* 10 MG/ML 2 ML (20 mg) IV ONE
[2016-08-21] MEDS ORDERED: Buffered Lidocaine 0.9% SYRIN* 5 ML/SYR SYRINGE ONE (06:12)
[2016-08-21] MEDS ORDERED: Propofol* 10 MG/ML 20 ML BTL IV PUSH ONE (07:20)
[2016-08-21] MEDS ORDERED: Midazolam* 1 MG/ML 2 ML VIAL (2 MG) ONE (07:20)
[2016-08-21] MEDS ORDERED: fentaNYL* 50 MCG/ML 2 ML VIAL (100 MCG VIAL) ONE ×2 (07:20→08:01)
[2016-08-21] MEDS ORDERED: HYDROcodone/ACETAMIN 5-325 MG* 1 TAB PO PRN (07:55)
[2016-08-21] MEDS ORDERED: Ondansetron INJ* 2 MG/ML VIAL IV PRN (07:55)
[2016-08-21] MEDS ORDERED: fentaNYL* 50 MCG/ML 2 ML VIAL (100 MCG VIAL) IV PRN (07:55)
[2016-08-21] MEDS ORDERED: DiMENhydriNATE IV* 50 MG/ML VIAL IV PUSH PRN (07:55)
[2016-08-21 08:47] VITALS: BP 136/88
[2016-08-21] MEDS ORDERED: Ibuprofen TAB* 600 MG ONE (08:49)
--- NOTE | 2016-08-21 09:14 | RAD ---
CPT II Codes: 6045F. Indication: Right knee pain. 3.7 seconds of fluoroscopy time was used. 3 spot images demonstrates manipulation of the right knee replacement. IMPRESSION: Fluoroscopic services provided for referring physician.
--- NOTE | 2016-08-22 05:05 | OP ---
DATE OF OPERATION: 08/21/16 - [facility] DATE OF : 39 ATTENDING SURGEON: Rosanne Barron MD ANESTHESIOLOGIST: Davy Siddiqui MD ANESTHESIA: LMA. PRE-OP DIAGNOSIS: Right total knee arthroplasty stiffness/arthrofibrosis. POST-OP DIAGNOSIS: Right total knee arthroplasty stiffness/arthrofibrosis. OPERATIVE PROCEDURE: Manipulation under anesthesia of the right total knee arthroplasty. COMPLICATIONS: None. ESTIMATED BLOOD LOSS: None. SPECIMEN: None. BRIEF HISTORY/INDICATIONS: Ms. Anderson is a 81-year-old female, now 6-weeks status post 07/03/16 right total knee arthroplasty. The patient did well initially advancing to 90 degrees of flexion by her 2-week appointment. At her 6-week appointment, she had not advanced any further. She had not been able to tolerate narcotic pain medications and had been taking minimal tramadol. By the time she reached her 6-week appointment, she was no longer taking any pain medications. The patient's radiograph showed no abnormality. She had no fevers , chills, and no signs of infection. Decision was made to perform manipulation under anesthesia of the right total knee arthrofibrosis. Dr. Carvajal was notified and felt that there was no preoperative clearance necessary. The patient was eager to have the manipulation. Informed consent was obtained from the patient. She understood the risks of the procedure included, but were not limited to bleeding, intraoperative fracture, continued stiffness, need for further surgery, stroke, heart attack, blood clot, , and anesthesia risks. She wished to proceed. INTRAOPERATIVE FINDINGS: Intraoperatively, the patient had 5 to 90 degrees of flexion with significant scar tissue. This was easily broken up and by the end of the procedure, she had approximately 2 degrees to 130 degrees of flexion. DESCRIPTION OF PROCEDURE: Ms. Anderson was identified in the preanesthesia unit. Her right lower extremity was marked as the correct operative side. Informed consent was signed and placed in the chart. The patient was taken to the operating room. The patient was placed under general anesthesia with LMA. Preop time-out was made to identify the patient side and site. No perioperative antibiotics were necessary. The knee was gently extended and flexed several times. Audible and palpable scar tissue breakup was noted. The knee easily flexed to 130 degrees of flexion. Final range of motion obtained was about 2 degrees shy of full extension to 130 degrees of flexion. AP and lateral C-arm views confirmed no periprosthetic fracture. The patient's anesthesia was reversed and she was taken to the PACU in stable condition. Intended weightbearing will be weightbearing as tolerated. She will have physical therapy later today and on the next 3 consecutive days. I will see her in followup in 1 week's time for a range of motion check. [id number]/[facility] #: [id number] MTDD
== END 2016-08-21 09:21 | disposition home or self-care (01) ==
LOC: OR 06:06
PROVIDERS: ATTEND Orthopaedic Surgery Adult Reconstructive Orthopaedic Surgery
DX: M24.661 Ankylosis, right knee (principal); Z96.651 Presence of right artificial knee joint; M25.561 Pain in right knee; M25.461 Effusion, right knee; Z47.1 Aftercare following joint replacement surgery; C92.10 Chronic myeloid leukemia, BCR/ABL-positive, not having achieved remission; E03.9 Hypothyroidism, unspecified; M19.90 Unspecified osteoarthritis, unspecified site
CPT/HCPCS: A9270-GY; J2250; J2704; J3010

== ENCOUNTER 2018-10-31 16:13 | Emergency (ER) | payer MEDICARE, BC ==
[2018-10-31] MEDS ORDERED: Ketorolac INJ* 30 MG/ML 1 ML VIAL IV PUSH ONE (17:52)
--- NOTE | 2018-10-31 17:59 | ED ---
Hypertension - HPI Summary HPI Summary: Pt is a 83 y/o F presenting to the ED with a chief complaint of HTN. This initially began with a vague headache approximately 6 weeks ago, and over the past week or so she has developed high blood pressure along with the headaches. The HAs come on randomly, and it is currently rated at 5/10. She denies visual changes, extremity weakness, or any relief from medication, including Tramadol. Medications reviewed, allergies noted. - History of Current Complaint Chief Complaint: EDHypertension Stated Complaint: HIGH BP AND HEADACHES, SENT FROM [facility] PER PT Time Seen by Provider: 10/31/18 17:35 Hx Obtained From: Patient Onset/Duration: Started Weeks Ago, Still Present Timing: Intermittent, Lasting Days Aggravating Factor(s): Nothing Alleviating Factor(s): Nothing Associated Signs & Symptoms: Headaches - Allergies/Home Medications Allergies/Adverse Reactions: Allergies Allergy/AdvReac Type Severity Reaction Status Date / Time No Known Allergies Allergy Verified 10/31/18 13:50 PMH/Surg Hx/FS Hx/Imm Hx Previously Healthy: Yes Endocrine/Hematology History: Reports: 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 knees, hands Sensory History: Reports: Hx Cataracts - RIGHT EYE DONE 2005, 2015 left, Hx Contacts or Glasses - GLASSES Denies: Hx Hearing Aid Opthamlomology History: Reports: Hx Cataracts - RIGHT EYE DONE 2005, 2016 left, Hx Contacts or Glasses - GLASSES - Cancer History Cancer Type, Location and Year: Chronic CHL Hx Chemotherapy: No - radiation Hx Radiation Therapy: Yes - Surgical History Surgery Procedure, Year, and Place: 1965, 1975, 1979, 1995 LEFT BREAST BIOPSY, [facility] [place]. 1995 LEFT BREAST LUMPECTOMY, [facility] [place]. 2004 REPAIR RIGHT EYE MACULAR [facility], [facility]. 2005 RIGHT CATARACT EXTRACTION WITH IOL IMPLANT, [facility] [place]. 2014 MELANOMA REMOVED. 2017 right total knee replacement Hx Anesthesia Reactions: No Infectious Disease History: No Infectious Disease History: Denies: Hx Clostridium Difficile, Hx Hepatitis, Hx Human Immunodeficiency Virus (HIV), Hx of Known/Suspected MRSA, Hx Shingles, Hx Tuberculosis, History Other Infectious Disease, Traveled Outside the [place] in Last 30 Days - Family History Known Family History: Negative: Diabetes - Social History Alcohol Use: Weekly Alcohol Amount: 2 GLASSES OF WINE once A WEEK Hx Substance Use: No Substance Use Type: Reports: None Hx Tobacco Use: Yes Smoking Status (MU): Former Smoker Type: Cigarettes Amount Used/How Often: 1 PPD, smoked 10 years Length of Time of Smoking/Using Tobacco: 10 YEARS Have You Smoked in the Last Year: No Review of Systems Eyes: Negative Positive: Headache. Negative: Weakness All Other Systems Reviewed And Are Negative: Yes Physical Exam - Summary Physical Exam Summary: Constitutional: Well-developed, Well-nourished, Alert. (-) Distressed Skin: Warm, Dry HENT: Normocephalic; Atraumatic Eyes: Conjunctiva normal Neck: Musculoskeletal ROM normal neck. (-) JVD, (-) Stridor, (-) Tracheal deviation Cardio: Rhythm regular, rate normal, Heart sounds normal; Intact distal pulses; The pedal pulses are 2+ and symmetric. Radial pulses are 2+ and symmetric. (-) Murmur Pulmonary/Chest wall: Effort normal. (-) Respiratory distress, (-) Wheezes, (-) Rales Abd: Soft, (-) tenderness, (-) Distension, (-) Guarding, (-) Rebound Musculoskeletal: (-) Edema Lymph: (-) Cervical adenopathy Neuro: Alert, Oriented x3, Strength normal, Cranial nerves II-XII are grossly intact. (-) Dysmetria, (-) Nystagmus, (-) Ataxia by finger to nose testing, (-) Sensory deficit. Psych: Mood and affect Normal Triage Information Reviewed: Yes Vital Signs On Initial Exam: Initial Vitals Temp Pulse Resp BP Pulse Ox 97.3 F 98 16 175/79 94 10/31/18 16:16 10/31/18 16:16 10/31/18 16:16 10/31/18 16:16 10/31/18 16:16 Vital Signs Reviewed: Yes Diagnostics - Vital Signs Vital Signs Temp Pulse Resp BP Pulse Ox 10/31/18 16:16 97.3 F 98 16 175/79 94 - Laboratory Result Diagrams: 10/31/18 18:01 10/31/18 18:01 Lab Statement: Any lab studies that have been ordered have been reviewed, and results considered in the medical decision making process. Re-Evaluation - Re-Evaluation 1st re-eval Re-Evaluation Time: 19:00 Change: Improved Comment: Pt states that she is feeling better. Her BP is now 150/70. She states she has an appointment on Saturday with her PCP, where she will follow up. Hypertension Course/Dx - Course Course Of Treatment: Patient is here with a mild headache and hypertension. Patient was here 2 days ago with similar symptoms. Patient had a broad workup there which included a CT scan with and without contrast to evaluate for mass. Patient had no abnormalities on the scan. Patient had blood work which was grossly unremarkable. Patient is noted be hypertensive with a blood pressure 180/80 initially. Patient is given a shot of IM Toradol which improved her pain and her blood pressure. Patient had a repeat CBC and BMP which showed mild creatinine elevation. Patient had hemoglobin A1c sent off as her sugar was elevated. Patient does not need an emergent MRI to evaluate for mass as she has no neurologic deficits. Patient is in the process of getting an MRI developed for a mass which I believe she needs in an urgent fashion. - Diagnoses Differential Diagnosis/HQI PQRI: Hypertension, Hypertensive Crisis, Hypertensive Urgency, Other - Intracranial mass, intracranial bleed Provider Diagnoses: Headache, HTN (hypertension) Discharge ED - Sign-Out/Discharge Documenting (check all that apply): Patient Departure Patient Received Moderate/Deep Sedation with Procedure: No - Discharge Plan Condition: Stable Disposition: HOME Patient Education Materials: Acute Headache (ED), Chronic Hypertension (ED) Referrals: Laurel Morrow MD [Primary Care Provider] - Additional Instructions: Please follow up with your primary care provider this coming Saturday, as scheduled. Return to the emergency department with any new or worsening symptoms. - Billing Disposition and Condition Condition: STABLE Disposition: Home - Attestation Statements Document Initiated by Scribe: Yes Documenting Scribe: Augusta Macdonald Provider For Whom Heladio is Documenting (Include Credential): Jose Hart MD. Scribe Attestation: Augusta Hoskins scribed for Jose Hart MD. on 10/31/18 at 2125. Scribe Documentation Reviewed: Yes Provider Attestation: The documentation as recorded by the Augusta myrick accurately reflects the service I personally performed and the decisions made by me, Jose Hart MD. Status of Scribe Document: Viewed
[2018-10-31] MEDS ORDERED: Ketorolac INJ* 30 MG/ML 1 ML VIAL IM ONE (18:20)
[2018-10-31 18:22] LABS: ABS Lymphocytes 0.4 10^3/ul (1.0-4.8); ABS Monocytes 0.1 10^3/ul (0-0.8); ABS Neutrophils 6.3 10^3/ul (1.5-7.7); Hematocrit 37 % (35-47); Hemoglobin 12.3 g/dL (12.0-16.0); Lymphocyte % 5.3 %; Mean Corpuscular HGB Conc 33 g/dL (31-36); Mean Corpuscular Hemoglobin 32 pg (27-31); Mean Corpuscular Volume 97 fL (80-97); Mean Platelet Volume 7.6 fL (7.4-10.4); Platelet Count 250 10^3/uL (150-450); Red Blood Count 3.84 10^6 /uL (3.70-4.87); Red Cell Distribution Width 14 % (10-15); White Blood Count 6.7 10^3/uL (3.5-10.8)
[2018-10-31 18:36] LABS: BUN/Creatinine Ratio 16.7 (8-20); Calcium 9.9 mg/dL (8.6-10.3); EGFR African American 58.9 (>60); EGFR Non-African American 48.7 (>60); Potassium 3.8 mmol/L (3.5-5.0)
[2018-10-31 19:21] VITALS: BP 171/80
== END 2018-10-31 19:19 | disposition home or self-care (01) ==
LOC: ED 16:13
DX: I10 Essential (primary) hypertension (principal); C92.10 Chronic myeloid leukemia, BCR/ABL-positive, not having achieved remission; E03.9 Hypothyroidism, unspecified; M19.90 Unspecified osteoarthritis, unspecified site; Z87.891 Personal history of nicotine dependence; Z79.899 Other long term (current) drug therapy; R51 Headache
CPT/HCPCS: 36415; 80048; 83036; 85025; 96372; 96374; 99212; 99283; A9270-GY; G0463; J1885

== ENCOUNTER 2023-12-31 11:27 | Observation (INO) ==
[2023-12-31 15:21] LABS: ABS Eosinophils 0.1 10^3/uL (0.0-0.5); ABS Lymphocytes 0.8 10^3/uL (1.0-4.8); ABS Monocytes 0.5 10^3/uL (0.0-0.9); ABS Neutrophils 3.6 10^3/uL (1.5-7.6); Eosinophil % 1.2 %; Hemoglobin 10.8 g/dL (11.5-14.3); Lymphocyte % 16.6 %; Mean Corpuscular Hemoglobin 32.3 pg (27-33); Mean Corpuscular Hgb Conc 32.7 g/dL (31-36); Mean Corpuscular Volume 98.7 fL (80-97); Mean Platelet Volume 7.5 fL (7.5-11.2); Nucleated Red Blood Cells % 0.1 %/100WBC (0.0-0.8); Platelet Count 134 10^3/uL (150-450); Red Blood Count 3.34 10^6/uL (3.63-4.92); Red Cell Distribution Width 14.3 % (12-17)
[2023-12-31 15:30] LABS: INR 0.9 (0.85-1.14)
[2023-12-31] MEDS: NS 0.9% 1000 ml BAG 1,000 ML IV ONE (15:46)
[2023-12-31 15:58] LABS: Albumin 4.4 g/dL (3.2-5.2); Calcium 9.6 mg/dL (8.6-10.3); Creatinine, Serum 1.38 mg/dL (0.51-0.95); Globulin 2.2 g/dL (2-4); Potassium 4.3 mmol/L (3.5-5.0); Total Bilirubin 0.5 mg/dL (0.2-1.0); Total Protein 6.6 g/dL (6.4-8.9); eGFR CKD-EPI 37.3 (>60)
[2023-12-31] MEDS: Iodixanol 320 (CONTRAST) 100 ML SDV IV ONE (16:33)
[2023-12-31] MEDS ORDERED: Sulfur Hexaflouride MICROSPHR 25 MG VIAL IV PRN (17:36)
[2023-12-31] MEDS: Enoxaparin 30 MG/0.3 ML SYR SUBCUT SCH (19:05)
[2023-12-31 20:48] LABS: HDL Cholesterol 75.8 mg/dL; Magnesium 1.9 mg/dL (1.9-2.7); Phosphorus 2.8 mg/dL (2.5-5.0)
[2023-12-31 21:03] LABS: TSH Ultra Thyroid Stim Horm 4.98 mcIU/mL (0.34-5.60)
[2023-12-31] MEDS: IMATINIB 100 MG PO SCH (21:10)
[2024-01-01] MEDS: Lactated Ringers 1000 ml BAG 500 ML IV ONE (00:29)
[2024-01-01 06:11] LABS: Hematocrit 32.7 % (35-45); Hemoglobin 11.2 g/dL (11.5-14.3); Mean Corpuscular Hemoglobin 33.4 pg (27-33); Mean Corpuscular Hgb Conc 34.2 g/dL (31-36); Mean Corpuscular Volume 97.6 fL (80-97); Mean Platelet Volume 8.2 fL (7.5-11.2); Platelet Count 141 10^3/uL (150-450); Red Blood Count 3.35 10^6/uL (3.63-4.92); Red Cell Distribution Width 14.2 % (12-17); White Blood Count 4.7 10^3/uL (3.8-11.8)
[2024-01-01 06:55] LABS: Creatinine, Serum 1.07 mg/dL (0.51-0.95); Magnesium 1.8 mg/dL (1.9-2.7); Potassium 3.8 mmol/L (3.5-5.0); eGFR CKD-EPI 50.6 (>60)
[2024-01-01] MEDS: Aspirin EC 81 mg TAB.EC (enteric coated) PO SCH (08:20)
[2024-01-01] MEDS: Magnesium Sulfate 2 gm BAG 2 GM/50 ML BAG IVPB ONE (08:21)
[2024-01-01] MEDS: Cholecalciferol (VIT D3) 1,000 unit TAB PO SCH (08:21)
[2024-01-01] MEDS: Oxymetazoline 0.05% NASAL SPR 15 ML BTL BOTH NARES SCH (08:22)
[2024-01-01] MEDS: Polyethyl Glycol/Propylene Gly OPHTH.SOLN BOTH EYES PRN (08:23)
[2024-01-02 09:40] VITALS: BP 125/66
== END 2024-01-02 13:23 | disposition home or self-care (01) ==
LOC: EDHOLD 11:27 → ED 11:27 → EDHOLD 01-01 03:32 → MEDTELE 01-01 11:07
PROVIDERS: ADMIT Student in an Organized Health Care Education/Training Program; ATTEND Student in an Organized Health Care Education/Training Program